=== PATIENT | female | born 1995 | race Caucasian/White ===

== ENCOUNTER 2017-02-13 16:08 | Emergency (ER) | payer OTHER ==
[~2017-02-13] VITALS: Ht 162.6 cm; Wt 76.3 kg
[~2017-02-13 16:08] MED LIST: Motrin PO; NOHOMEMEDS; Percocet 5/325,Endoc PO; ~No Medications
[2017-02-13 18:09] LABS: MCH 29.7 PG (29.0-34.0); MCHC 33.7 G/DL (30.0-36.0); MCV 88.2 FL (83-99); MEAN PLAT.VOLUME 10.7 uM^3 (9.5-12.4); PLATELET COUNT 309 K/uL (156-360); RBC DIS.WIDTH-CV 13.2 % (11.8-14.6); RBC DIS.WIDTH-SD 42.3 % (39-53); RED BLOOD COUNT 3.97 M/uL (3.80-5.20); WHITE BLOOD COUNT 7.1 K/uL (4.1-10.2)
[2017-02-13 18:20] LABS: CHLORIDE 102 mEq/L (99-109); POTASSIUM 3.5 mEq/L (3.7-5.4); SODIUM 137 mEq/L (136-147)
[2017-02-13 18:22] LABS: GLUCOSE 86 mg/dL (70-99)
[2017-02-13 18:23] LABS: ANION GAP 8 MEQ/L (2-14)
[2017-02-13 18:24] LABS: TOTAL BILIRUBIN 0.3 mg/dL (0.0-1.0)
[2017-02-13 18:25] LABS: SERUM ETHYL ALCOHOL < 10 mg/dL
[2017-02-13 18:26] LABS: ALKALINE PHOSPHATASE 149 IU/L (3-129); GFR ESTIMATE (CALCULATED) > 59 mL/min/
[2017-02-13] MEDS ORDERED: CLONIDINE HCL0.1 MG PO (18:26)
[2017-02-13] MEDS ORDERED: TRAZODONE HCL50 MG PO (18:26)
[2017-02-13 18:27] LABS: UREA NITROGEN (BUN) 5 mg/dL (9-23)
[2017-02-13 18:39] LABS: QUANTITATIVE HCG < 4.0 MIU/ML
[2017-02-13 18:44] VITALS: BP 114/72
== END 2017-02-13 18:44 | disposition home or self-care (01) ==
LOC: EME 16:08
PROVIDERS: Emergency Medicine
DX: F11.10 Opioid abuse, uncomplicated (principal); F17.200 Nicotine dependence, unspecified, uncomplicated
CPT/HCPCS: 80053; 81003; 84702; 85027; 90839; 99281; 99283; G0480

== ENCOUNTER 2017-09-05 09:42 | Emergency (ER) | payer OTHER ==
[~2017-09-05] VITALS: Ht 162.6 cm; Wt 73.4 kg
[~2017-09-05 09:42] MED LIST changes: +CLONIDINE HCL0.1 MG PO; +TRAZODONE HCL50 MG PO
[2017-09-05 11:17] VITALS: BP 112/74
== END 2017-09-05 11:21 | disposition home or self-care (01) ==
LOC: EME 09:42
DX: S81.011A Laceration without foreign body, right knee, initial encounter (principal); W26.0XXA Contact with knife, initial encounter; Y93.E2 Activity, laundry; Z23 Encounter for immunization
CPT/HCPCS: 99281; 99284

== ENCOUNTER 2018-01-12 10:38 | Emergency (ER) | payer OTHER ==
[~2018-01-12] VITALS: Ht 162.6 cm; Wt 66.2 kg
[2018-01-12 13:25] LABS: SOURCE URINE
[2018-01-12 15:49] LABS: HEMOGLOBIN 12.1 G/DL (11.9-15.5); MCH 29.6 PG (29.0-34.0); MCHC 33.6 G/DL (30.0-36.0); PLATELET COUNT 361 K/uL (156-360); RBC DIS.WIDTH-CV 13.9 % (11.8-14.6); RBC DIS.WIDTH-SD 45.1 % (39-53); RED BLOOD COUNT 4.09 M/uL (3.80-5.20); WHITE BLOOD COUNT 5.7 K/uL (4.1-10.2)
[2018-01-12 15:57] LABS: ALBUMIN 4.3 g/dL (3.2-4.8); CHLORIDE 102 mEq/L (99-109); POTASSIUM 4.2 mEq/L (3.7-5.4); SODIUM 138 mEq/L (136-147)
[2018-01-12 16:00] LABS: GLUCOSE 84 mg/dL (70-99); TOTAL PROTEIN 7.3 g/dL (6.4-8.3)
[2018-01-12 16:02] LABS: TOTAL BILIRUBIN 0.3 mg/dL (0.0-1.0)
[2018-01-12 16:03] LABS: ALKALINE PHOSPHATASE 167 IU/L (3-129); CREATININE 0.8 mg/dL (0.6-1.3); GFR ESTIMATE (CALCULATED) > 59 mL/min/
[2018-01-12 16:04] LABS: UREA NITROGEN (BUN) 11 mg/dL (9-23)
[2018-01-12 16:05] LABS: AST (GOT) 457 IU/L (2-34)
[2018-01-12 16:06] LABS: ALT (GPT) 745 IU/L (3-49)
[2018-01-12 16:19] VITALS: BP 00/00
[2018-01-12] MEDS ORDERED: TYLENOL EXTRA500 MG PO (22:14)
[2018-01-14 14:25] LABS: CHLAMYDIA TRACHOMATIS POSITIVE; NEISSERIA GONORRHOEAE POSITIVE
== END 2018-01-12 16:20 | disposition home or self-care (01) ==
LOC: EME 10:38
PROVIDERS: Physician Assistant
DX: M79.89 Other specified soft tissue disorders (principal); Z20.2 Contact with and (suspected) exposure to infections with a predominantly sexual mode of transmission; Z11.3 Encounter for screening for infections with a predominantly sexual mode of transmission; F11.90 Opioid use, unspecified, uncomplicated; M79.602 Pain in left arm; M79.642 Pain in left hand; N89.8 Other specified noninflammatory disorders of vagina; F17.200 Nicotine dependence, unspecified, uncomplicated
CPT/HCPCS: 80053; 85027; 87491; 87591; 93971; 99281; 99284; J0696

== ENCOUNTER 2018-01-12 19:09 | Observation (INO) | payer OTHER ==
[~2018-01-12] VITALS: Ht 162.6 cm; Wt 65.4 kg
[2018-01-12 20:30] LABS: HEMATOCRIT 37.4 % (36.0-46.0); HEMOGLOBIN 12.5 G/DL (11.9-15.5); MCHC 33.4 G/DL (30.0-36.0); MCV 86.8 FL (83-99); PLATELET COUNT 352 K/uL (156-360); RBC DIS.WIDTH-CV 13.9 % (11.8-14.6); RBC DIS.WIDTH-SD 44.6 % (39-53); RED BLOOD COUNT 4.31 M/uL (3.80-5.20); WHITE BLOOD COUNT 4.5 K/uL (4.1-10.2)
[2018-01-12 20:38] LABS: ALBUMIN 4.5 g/dL (3.2-4.8); CHLORIDE 103 mEq/L (99-109); SODIUM 137 mEq/L (136-147)
[2018-01-12 20:41] LABS: GLUCOSE 78 mg/dL (70-99); TOTAL PROTEIN 7.6 g/dL (6.4-8.3)
[2018-01-12 20:44] LABS: CREATININE 0.8 mg/dL (0.6-1.3); GFR ESTIMATE (CALCULATED) > 59 mL/min/
[2018-01-12 20:45] LABS: ALKALINE PHOSPHATASE 185 IU/L (3-129)
[2018-01-12 20:46] LABS: AST (GOT) 530 IU/L (2-34); TOTAL BILIRUBIN 0.5 mg/dL (0.0-1.0); UREA NITROGEN (BUN) 9 mg/dL (9-23)
[2018-01-12 20:48] LABS: ACETAMINOPHEN (TYLENOL) < 10 mcg/mL (10-30); ALT (GPT) 837 IU/L (3-49); SALICYLATE < 5.0 MG/DL (15-30)
[2018-01-12 20:49] LABS: LIPASE 19 U/L (1.0-51.0)
[2018-01-12 20:55] LABS: QUANTITATIVE HCG < 4.0 MIU/ML
[2018-01-12 21:42] LABS: APPEARANCE CLEAR ((CLEAR)); BILIRUBIN NEGATIVE; BLOOD NEGATIVE; COLOR STRAW ((YELLOW)); GLUCOSE (STRIP) NEGATIVE; KETONES NEGATIVE; LEUKOCYTES NEGATIVE; NITRITE NEGATIVE; PROTEIN (STRIP) NEGATIVE; SPECIFIC GRAVITY 1.044 (1.000-1.030); UCUL ADDED? NO; UROBILINOGEN 0.2 MG/DL (0.2-1.0)
[2018-01-12] MEDS ORDERED: TYLENOL EXTRA500 MG PO (22:14)
[2018-01-12 22:56] LABS: INTER. NORMALIZED RATIO 1.1
[2018-01-12 22:58] LABS: PTT 28.9 SEC (25-37)
[2018-01-12 23:06] LABS: SERUM ETHYL ALCOHOL < 10 mg/dL
[2018-01-12 23:09] LABS: CREATINE KINASE 126 IU/L (1-294)
[2018-01-13 00:11] VITALS: BP 98/56
[2018-01-13 03:32] LABS: ALBUMIN 3.5 g/dL (3.2-4.8); CHLORIDE 107 mEq/L (99-109); POTASSIUM 3.6 mEq/L (3.7-5.4); SODIUM 141 mEq/L (136-147)
[2018-01-13 03:36] LABS: TOTAL BILIRUBIN 0.4 mg/dL (0.0-1.0)
[2018-01-13 03:38] LABS: ALKALINE PHOSPHATASE 149 IU/L (3-129); CREATININE 0.7 mg/dL (0.6-1.3); GFR ESTIMATE (CALCULATED) > 59 mL/min/
[2018-01-13 03:39] LABS: AST (GOT) 374 IU/L (2-34); UREA NITROGEN (BUN) 9 mg/dL (9-23)
[2018-01-13 03:41] LABS: ALT (GPT) 633 IU/L (3-49)
[2018-01-13 03:44] LABS: GLUCOSE 115 mg/dL (70-99); TOTAL PROTEIN 5.6 g/dL (6.4-8.3)
[2018-01-13 04:15] VITALS: BP 128/57
[2018-01-13 07:18] VITALS: BP 91/54
[2018-01-13 10:08] LABS: ALBUMIN 3.5 G/DL (3.2-4.8); ALKALINE PHOSPHATASE 160 IU/L (3-129); ALT (GPT) 560 IU/L (3-49); AST (GOT) 350 IU/L (2-34); CHLORIDE 109 MEQ/L (99-109); CREATININE 0.6 MG/DL (0.6-1.3); GFR ESTIMATE (CALCULATED) > 59 mL/min/; GLUCOSE 122 mg/dL (70-99); POTASSIUM 4.4 MEQ/L (3.7-5.4); SODIUM 140 MEQ/L (136-147); TOTAL BILIRUBIN 0.5 MG/DL (0.0-1.0); TOTAL PROTEIN 5.5 G/DL (6.4-8.3); UREA NITROGEN (BUN) 10 mg/dL (9-23)
[2018-01-14 12:11] LABS: HEPATITIS B SURFACE ANTIGEN Nonreactive
[2018-01-14 12:13] LABS: ANTI-HEPATITIS A VIRUS (IGM) Nonreactive; ANTI-HEPATITIS B CORE (IGM) Nonreactive
[2018-01-14 12:20] LABS: HIV-1/2 AB/AG COMBO Nonreactive
[2018-01-14 12:23] LABS: HEPATITIS C ANTIBODY REACTIVE
== END 2018-01-13 11:15 | disposition home or self-care (01) ==
LOC: EME 19:09 → EDOF 22:28 → ENRESERV 22:29 → 4SOUTH 01-13 00:02
PROVIDERS: Physician Assistant; Physician Assistant Medical
DX: B17.9 Acute viral hepatitis, unspecified (principal); F11.10 Opioid abuse, uncomplicated; F17.210 Nicotine dependence, cigarettes, uncomplicated; K80.20 Calculus of gallbladder without cholecystitis without obstruction; K59.00 Constipation, unspecified; R30.0 Dysuria; Z86.19 Personal history of other infectious and parasitic diseases; Z82.49 Family history of ischemic heart disease and other diseases of the circulatory system; Z81.1 Family history of alcohol abuse and dependence; K08.89 Other specified disorders of teeth and supporting structures
CPT/HCPCS: 74177; 76705; 80053; 80074; 81003; 82140; 82550; 83605; 83690; 84702; 85027; 85610; 85730; 87040; 87389; 99281; 99284; G0378; G0480; J7030